=== PATIENT | female | born 1995 | race African-American/Black ===

== ENCOUNTER 2021-11-13 11:34 | Emergency (ER) | payer OTHER, SELFPAY ==
[2021-11-13] VITALS (14 sets, daily range): BP systolic 107–149; BP diastolic 70–98; PULSE 78–100; RESP 13–21; O2SAT 97–100
--- NOTE | ~2021-11-13 | US_ITS ---
EXAMINATION: US pelvic complete w TV DATE: 11/13/2021 13:28 INDICATION: Recent . Abdominal and pelvic pain with bleeding. Comparison:No prior studies for comparison. TECHNIQUE: Multiple transabdominal sonographic images of the pelvis performed. Patient refused transv aginal examination. FINDINGS: The uterus measures 10.8 x 5.2 x 5.8 cm. The endometrium is thickened and heterogeneous mariaa suring 1.5 cm. No evidence for intrauterine gestational sac or pole.. T The right ovary measures 2.2 x 1.6 x 1.5 cm and the left ovary is not visualized. There is normal Dop pler signal in the right ovary. There is no free fluid in the pelvis. There are no abnormal masses seen on either side. IMPRESSION: 1. Thickened heterogeneous endometrium measuring 1.5 cm. Cannot exclude retained products of concepti on. Reviewed, dictated and finalized at location A. IMPRESSION: 1. Thickened heterogeneous endometrium measuring 1.5 cm. Cannot exclude retaine d products of conception.
[2021-11-13 12:17] LABS: Basophils Absolute Auto 0.1 K/mm3 (0.0-0.1); Basophils Percent Auto 0.5 % (0.2-1.2); Eosinophils Absolute Auto 0.1 K/mm3 (0-0.3); Eosinophils Percent Auto 0.8 % (0-4.4); Hematocrit 40.1 % (37.0-47.0); Hemoglobin 13.9 g/dL (12.0-15.0); Immature Granulocyte Absolute 0.05 K/mm3 (0.00-0.031); Immature Granulocyte Percent A 0.5 % (0-0.5); Lymphocytes Absolute Auto 1.49 K/mm3 (0.9-3.2); Lymphocytes Percent Auto 13.8 % (18.3-44.2); Mean Corpuscular HGB Conc 34.7 g/dl (32-36); Mean Corpuscular Hemoglobin 30.9 pg (26-34); Mean Corpuscular Volume 89.1 fl (80-100); Monocytes Absolute Auto 0.5 K/mm3 (0.1-0.6); Monocytes Percent Auto 4.7 % (2.6-8.5); Neutrophils Absolute Auto 8.6 K/mm3 (1.3-6.7); Neutrophils Percent Auto 79.7 % (45.5-73.1); Platelet Count Result 394 k/mm3 (150-375); White Blood Count 10.8 K/mm3 (4.5-10.0)
[2021-11-13] MEDS: KETOROLAC 15 MG/ML VIAL (*BKC) IV PUSH ×2 (12:17→16:43)
--- NOTE | 2021-11-13 12:27 | ED.FEMALEGU ---
HPI - Female Genitourinary General Chief complaint: Vaginal Bleeding Stated complaint: medicated with severe pain Time Seen by Provider: 11/13/21 11:57 History of Present Illness HPI Narrative: Patient is a 25-year-old female here for evaluation of pelvic cramping for the past 4 hours. Patient took mifepristone/misoprostol yesterday for an elective medical yesterday at the [facility]. She was about 9 weeks along by [place]. She states that she has also passed two small blood clots about a nickel in size. She denies any fevers or chills, constipation, diarrhea. Denies any urinary complaints. Reports several episodes of nausea and vomiting as well. 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 She took Tylenol but no other pain medicines given prior to arrival. Related Data Allergies Allergy/AdvReac Type Severity Reaction Status Date / Time latex Allergy Rash Verified 11/13/21 12:16 Penicillins Allergy Rash Verified 11/13/21 12:16 Review of Systems Review of Systems: Gen: Denies fevers or chills Eyes: Denies eye pain or visual change ENT: Denies congestion Respiratory: Denies shortness of breath or cough CV: Denies chest pain or palpitations GI: Reports lower abdominal pain. : reports vaginal bleeding. Musculoskeletal: Denies back pain or muscle pain Neuro: Denies numbness, tingling, weakness or focal weakness Skin: Denies rash Except as documented, all other systems reviewed and negative Exam Narrative: APPEARANCE: uncomfortable appearing Head: Normocephalic and atraumatic. EYES: PERRLA/EOMI, conjunctivae clear NOSE: No nasal drainage EARS: External ear normal in appearance THROAT: Oropharynx is clear. Mucous membranes are moist. NECK: Supple. No adenopathy, no masses. RESPIRATORY: Airway patent, respirations nonlabored. Clear to auscultation bilaterally, no rales, rhonchi, wheezing. CARDIOVASCULAR: Regular rate and rhythm without murmurs, rubs, or gallops. ABDOMINAL: tender to palpation in suprapubic region. Normoactive bowel sounds. Soft, nondistended. No rebound tenderness or guarding. MUSCULOSKELETAL: Extremities are warm and well-perfused. Moves all extremities well. No edema. NEURO: Normal speech. No focal neurologic deficits. SKIN: Skin is warm and dry. No rashes. PSYCHIATRIC: Normal affect/mood. Course Consultations Consultation #1: Spoke with Dr. Zavala, OB carbon setter for patient's OB, recommends 800 mcg Cytotec and follow up this following week, does not feel admission for obs necessary Date: 11/13/21 Time: 14:00 Vital Signs Vital signs: Vital Signs Pulse Rate 96 11/13/21 11:42 Respiratory Rate 21 H 11/13/21 11:42 Blood Pressure 149/94 H 11/13/21 11:42 Pulse Oximetry 97 11/13/21 11:42 Oxygen Delivery Room Air 11/13/21 11:42 Pulse Rate 99 11/13/21 15:30 Respiratory Rate 16 11/13/21 15:30 Blood Pressure 124/76 11/13/21 15:30 Pulse Oximetry 100 11/13/21 15:30 Oxygen Delivery Room Air 11/13/21 11:42 MDM - Female Genitourinary MDM Narrative Medical decision making narrative: 25-year-old female who took pills yesterday at the [facility] with no active procedure here for evaluation of severe lower abdominal cramping and passing to small blood clots vaginally today. Here she is uncomfortable appearing and tender in her suprapubic region. Work-up significant for a quant of over 30,000, potassium of 2.8, normal mag, ultrasound with heterogenous mass in the endometrium which cannot rule out retained products of conception. she has an anion gap and ketones in her urine, glucose in normal; likely starvation ketosis. Patient's potassium was repleted IV and orally in addition to fluids. ekg without concerning findings. She was also given Toradol x 2 with improvement of her pain. Spoke with OB on-call for her clinic, recommended repeat Cytotec dose given findings on ultrasound and patient passing luis alfredo
[2021-11-13 12:29] LABS: Alanine Aminotransferase 17 U/L (6-35); Albumin Level 5.1 g/dL (3.5-5.1); Alkaline Phosphatase 77 U/L (38-126); Anion Gap 18 mmol/L (8-16); Aspartate Amino Transferase 25 U/L (14-36); Bilirubin,Total 0.6 mg/dL (0.2-1.3); Blood Urea Nitrogen 5 mg/dL (7-17); Calcium 9.7 mg/dL (8.4-10.2); Carbon Dioxide 20 mmol/L (22-30); Chloride 102 mmol/L (98-107); Estimated CRCL calculation 114 ml/min; Estimated Glomerular Filt Rate > 60; Glucose 129 mg/dL (65-110); Potassium 2.8 mmol/L (3.4-5.0); Sodium 140 mmol/L (137-145)
[2021-11-13] MEDS: POTASSIUM CHLORIDE INJ 40 MEQ in SODIUM CHLORIDE 0.9% IV 500 ML 130 MEQ IVPB (12:57)
[2021-11-13] MEDS: SODIUM CHLORIDE 0.9% IV 1,000 ML 999 ML IV CONT (12:58)
--- NOTE | 2021-11-13 13:46 | ECG_ITS ---
Measurements Intervals [place] Rate: 84 P: 69 [place]: 124 QRS: 68 QRSD: 89 T: 35 QT: 382 QTc: 454 Interpretive Statements SINUS RHYTHM WITH MARKED SINUS ARRHYTHMIA NORMAL ECG COMPARED TO ECG 12/31/2018 23:38:54 SINUS ARRHYTHMIA NOW PRESENT Electronically Signed On 11-13-2021 18:23:19 CDT by Wilfred Gale D.O.
[2021-11-13] MEDS: POTASSIUM CHLORIDE 20 MEQ PACKET (FOR LIQUID) 40 MEQ PO (14:01)
[2021-11-13] MEDS: miSOPROStol 200 MCG TABLET 800 MCG PO (15:21)
[2021-11-13 15:57] LABS: Appearance Urine Cloudy (Clear); Bilirubin Urine Negative (Negative); Blood Urine 2+ (Negative); Color Urine Yellow (Yellow); Glucose Urine UA Negative (Negative); Ketones Urine 3+ mg/dL (Negative); Leukocyte Esterase Ur Trace LEU/UL (Negative); Nitrate Urine Negative (Negative); Protein Urine 1+ mg/dL (Negative); Specific Grav Ur 1.015 (1.001-1.035); Urobilinogen Urine 0.2 mg/dL (<2.0); pH Urine 8.5 (5.0-9.0)
[2021-11-13 16:06] LABS: Mucus Urine Rare /lpf; RBC Urine >75 /hpf (0-2); Squamous Epithelial Cell Urine Rare /hpf (Few)
[2021-11-13 16:15] LABS: Magnesium 1.6 mg/dL (1.6-2.3)
[2021-11-13 16:35] LABS: Add Urine Microscopic? YES
== END 2021-11-13 17:45 | disposition home or self-care (01) ==
PROVIDERS: Physician Assistant; Emergency Provider Emergency Medicine
DX: O07.4 Failed attempted termination of pregnancy without complication (principal)
CPT/HCPCS: 36415; 76830; 76856; 80053; 81001; 83605; 83735; 84132; 84702; 85025; 85461; 87086; 87088; 93005; 96365; 96366; 96375; 96376; 99284; A9270; J1885; J3480; J7030; J7040